=== PATIENT | female | born 1985 | race Two or more races ===

== ENCOUNTER 2018-06-21 09:36 | Emergency (ER) | payer BC, MEDICAID ==
[~2018-06-21] VITALS: Ht 152.4 cm; Wt 65.3 kg
[2018-06-21 09:45] VITALS: BP 120/70
[2018-06-21] MEDS ORDERED: ONDANSETRON ODT 4 MG TAB PO ONE (10:30)
[2018-06-21] MEDS ORDERED: KETOROLAC TROMETH 60MG/2ML VIAL IM ONE (10:30)
== END 2018-06-21 11:01 | disposition home or self-care (01) ==
LOC: ER 09:36
DX: R51 Headache (principal)
CPT/HCPCS: 70450; 96372; 99284; J1885; Q0162

== ENCOUNTER 2019-05-23 16:35 | Emergency (ER) | payer BC, MEDICAID ==
[~2019-05-23] VITALS: Ht 152.4 cm; Wt 65.3 kg
[2019-05-23 16:50] VITALS: BP 137/80
[2019-05-23] MEDS ORDERED: KETOROLAC TROMETH 60MG/2ML VIAL IM ONE (17:15)
== END 2019-05-23 18:10 | disposition home or self-care (01) ==
LOC: ER 16:35
DX: M54.5 Low back pain (principal)
CPT/HCPCS: 96372; 99283; J1885

== ENCOUNTER 2019-06-18 16:49 | Emergency (ER) | payer BC, MEDICAID ==
[~2019-06-18] VITALS: Ht 152.4 cm; Wt 64.4 kg
[2019-06-18 17:04] VITALS: BP 144/80
[2019-06-18] MEDS ORDERED: KETOROLAC TROMETH 30 MG/ML 1ML VIAL ONE (20:54)
[2019-06-18] MEDS ORDERED: KETOROLAC TROMETH 60MG/2ML VIAL IM ONE (21:15)
== END 2019-06-18 22:04 | disposition home or self-care (01) ==
LOC: ER 16:49
DX: S33.5XXA Sprain of ligaments of lumbar spine, initial encounter (principal); S16.1XXA Strain of muscle, fascia and tendon at neck level, initial encounter; X58.XXXA Exposure to other specified factors, initial encounter; Y93.89 Activity, other specified; Y99.8 Other external cause status; Y92.89 Other specified places as the place of occurrence of the external cause
CPT/HCPCS: 72100; 96372; 99283; J1885

== ENCOUNTER 2019-06-25 03:23 | Emergency (ER) | payer BC, MEDICAID ==
[~2019-06-25] VITALS: Ht 152.4 cm; Wt 62.6 kg
[2019-06-25 04:01] LABS: Basophils # (auto) 0 uL; Basophils % (auto) 0.4 % (0.0-2.0); Eosinophils # (auto) 0.3 uL; Eosinophils % (auto) 3.9 % (0.0-7.0); Hematocrit 39.8 % (36.0-46.0); Hemoglobin 14.1 g/dL (12.2-16.2); Lymphocytes # (auto) 2.8 uL; Lymphocytes % (auto) 40.5 % (10.0-50.0); Mean Corpuscular Hemoglobin 32.6 pg (28.0-32.0); Mean Corpuscular Hgb Conc. 35.5 g/dL (32.0-36.0); Mean Corpuscular Volume 91.8 fL (80.0-100.0); Monocytes # (auto) 0.4 uL; Monocytes % (auto) 6.1 % (0.0-12.0); Neutrophils # (auto) 3.4 uL; Neutrophils % (auto) 49.1 % (37.0-80.0); Nucleated Red Blood Cells % 0.1 %; Platelet Count (auto) 168 10^3/uL (140-450); Red Blood Cells 4.33 10^6/uL (4.0-5.20); Red Cell Distribution Width 12.4 % (11.8-14.3); White Blood Cell 6.9 10^3/uL (4.4-10.8)
[2019-06-25 04:14] LABS: Albumin 4.2 g/dL (3.4-5.0); Calcium 8.6 mg/dL (8.5-10.1); Potassium 4.1 mmol/L (3.5-5.1)
[2019-06-25 04:16] LABS: BUN/Creatinine Ratio 20.5
[2019-06-25 04:18] LABS: Bilirubin, Total 0.4 mg/dL (0.2-1.0); Total Protein 7.7 g/dL (6.4-8.2)
[2019-06-25 08:00] LABS: Urine Bacteria MANY /hpf (None Seen); Urine Blood Negative /uL (Negative); Urine Specific Gravity 1.008 (1.001-1.035); Urine WBC 1 /hpf (0 - 5)
[2019-06-25 09:30] VITALS: BP 110/64
[2019-06-25] MEDS ORDERED: LACTULOSE 20Gm/30ML SOLN PO ONE (09:45)
== END 2019-06-25 10:08 | disposition home or self-care (01) ==
LOC: ER 03:27
DX: K59.00 Constipation, unspecified (principal)
CPT/HCPCS: 36415; 74018; 80053; 81001; 85025

== ENCOUNTER 2020-10-27 14:45 | Emergency (ER) | payer BC, MEDICAID ==
[~2020-10-27] VITALS: Ht 152.4 cm; Wt 65.8 kg
[2020-10-27 14:55] VITALS: BP 137/80
== END 2020-10-27 15:50 | disposition home or self-care (01) ==
LOC: ER 14:45
DX: U07.1 COVID-19 (principal); J20.8 Acute bronchitis due to other specified organisms
CPT/HCPCS: 71045

== ENCOUNTER 2021-04-26 12:42 | Emergency (ER) | payer BC, MEDICAID ==
[~2021-04-26] VITALS: Ht 152.4 cm; Wt 67.6 kg
[2021-04-26 13:25] LABS: Basophils # (auto) 0 10 ^3/uL (0-0.2); Basophils % (auto) 0.7 % (0.0-2.0); Eosinophils # (auto) 0.2 10 ^3/uL (0-0.8); Eosinophils % (auto) 3.1 % (0.0-7.0); Hematocrit 38.1 % (36.0-46.0); Hemoglobin 13.5 g/dL (12.2-16.2); Lymphocytes # (auto) 2.1 10 ^3/uL (0.4-5.4); Lymphocytes % (auto) 36.5 % (10.0-50.0); Mean Corpuscular Hgb Conc. 35.5 g/dL (32.0-36.0); Mean Corpuscular Volume 90.2 fL (80.0-100.0); Monocytes # (auto) 0.3 10 ^3/uL (0-1.3); Monocytes % (auto) 5.9 % (0.0-12.0); Neutrophils # (auto) 3.1 10 ^3/uL (1.6-8.6); Neutrophils % (auto) 53.8 % (37.0-80.0); Nucleated Red Blood Cells % 0.1 %; Red Blood Cells 4.23 10^6/uL (4.0-5.20); Red Cell Distribution Width 12.7 % (11.8-14.3); White Blood Cell 5.7 10^3/uL (4.4-10.8)
[2021-04-26 13:28] LABS: Urine Amorphous Crystal FEW /hpf (None Seen); Urine Bacteria NONE SEEN /hpf (None Seen); Urine Blood 1+ /uL (Negative); Urine Specific Gravity 1.006 (1.001-1.035); Urine WBC 7 /hpf (0 - 5)
[2021-04-26 13:52] LABS: Calcium 8.6 mg/dL (8.5-10.1)
[2021-04-26 13:55] LABS: BUN/Creatinine Ratio 23.2; Bilirubin, Total 0.4 mg/dL (0.2-1.0); Total Protein 7.8 g/dL (6.4-8.2)
[2021-04-26 14:30] VITALS: BP 128/78
== END 2021-04-26 14:32 | disposition home or self-care (01) ==
LOC: ER 12:42
DX: N39.0 Urinary tract infection, site not specified (principal)
CPT/HCPCS: 36415; 74176; 80053; 81001; 81025; 83690; 85025

== ENCOUNTER 2021-09-02 17:29 | Emergency (ER) | payer BC, MEDICAID ==
[~2021-09-02] VITALS: Ht 152.4 cm; Wt 70.0 kg
[2021-09-02] MEDS ORDERED: ONDANSETRON ODT 4 MG TAB PO ONE (20:30)
[2021-09-02 22:32] VITALS: BP 123/82
[2021-09-02] MEDS ORDERED: KETOROLAC TROMETH 60MG/2ML VIAL IM ONE (23:15)
== END 2021-09-02 23:56 | disposition home or self-care (01) ==
LOC: ER 17:29
DX: G43.909 Migraine, unspecified, not intractable, without status migrainosus (principal); R42 Dizziness and giddiness; R11.0 Nausea; E66.9 Obesity, unspecified; Z68.30 Body mass index [BMI] 30.0-30.9, adult
CPT/HCPCS: 70450; 96372; 99284; J1885; Q0162